=== PATIENT | female | born 1995 | race African-American/Black ===

== ENCOUNTER 2018-05-29 01:20 | Emergency (ER) | payer OTHER ==
[~2018-05-29] VITALS: Ht 167.6 cm; Wt 131.5 kg
[2018-05-29 01:31] VITALS: Ht 167.6 cm; Wt 131.5 kg
[2018-05-29 02:48] VITALS: BP 142/76
== END 2018-05-29 02:48 | disposition home or self-care (01) ==
LOC: ED 01:20
DX: M25.512 Pain in left shoulder (principal); V89.2XXA Person injured in unspecified motor-vehicle accident, traffic, initial encounter; Y93.89 Activity, other specified; Y92.89 Other specified places as the place of occurrence of the external cause; Y99.8 Other external cause status
CPT/HCPCS: J1885